=== PATIENT | female | born 1955 | race Caucasian/White ===

== ENCOUNTER 2020-04-08 11:46 | Outpatient (REF) | payer MEDICARE, MEDICAID, SELFPAY | END 2020-04-08 11:47 | disposition home or self-care (01) | LOC: HO.LAB 11:46 | PROVIDERS: Visit Provider Internal Medicine | DX: Z20.828 Contact with and (suspected) exposure to other viral communicable diseases (principal) | CPT/HCPCS: C9803; U0003 ==

== ENCOUNTER → 2020-06-13 14:12 | Outpatient (BNVA) | payer MEDICARE, MEDICAID, SELFPAY | PROVIDERS: PCP Internal Medicine; Visit Provider Internal Medicine Cardiovascular Disease | DX: I44.7 Left bundle-branch block, unspecified (principal); I10 Essential (primary) hypertension | CPT/HCPCS: 93005; 99212 ==

== ENCOUNTER 2020-08-16 08:50 | Outpatient (REF) | payer MEDICARE, MEDICAID, SELFPAY ==
--- NOTE | ~2020-08-16 | XR_ITS ---
EXAMINATION: XR SHOULDER, LEFT CLINICAL INFORMATION: Pain. COMPARISON: None TECHNIQUE: AP external rotation, Grashey, scapular Y, and axillary views of the left shoulder. FINDINGS: There is mild loss of left AC joint space with inferior spurring. The glenohumeral joint space is normal. There is no visible acute fracture, dislocation or bony erosive changes. The soft tissues are normal XR/XR shoulder LT min 2V IMPRESSION: Mild degenerative changes left AC joint. The glenohumeral joint space and rest of the left shoulder appears unremarkable.
== END 2020-08-16 08:51 | disposition home or self-care (01) ==
LOC: HO.XRAY 08:50
PROVIDERS: PCP Internal Medicine; Visit Provider Internal Medicine
DX: M25.512 Pain in left shoulder (principal)
CPT/HCPCS: 73030

== ENCOUNTER → 2021-01-28 11:32 | Outpatient (BNVA) | payer MEDICARE, MEDICAID, SELFPAY | PROVIDERS: PCP Internal Medicine; Referring Provider Internal Medicine; Visit Provider Nurse Practitioner Family | DX: K59.01 Slow transit constipation (principal); Z12.11 Encounter for screening for malignant neoplasm of colon | CPT/HCPCS: Q3014 ==

== ENCOUNTER → 2021-02-17 09:24 | Outpatient (BNVA) | payer MEDICARE, MEDICAID, SELFPAY | PROVIDERS: PCP Internal Medicine; Referring Provider Internal Medicine; Visit Provider Internal Medicine Cardiovascular Disease | DX: Z01.810 Encounter for preprocedural cardiovascular examination (principal); I44.7 Left bundle-branch block, unspecified; I10 Essential (primary) hypertension | CPT/HCPCS: 93005; 99212 ==

== ENCOUNTER 2022-12-14 11:05 | Outpatient (AMB) | payer MEDICARE, MEDICAID, SELFPAY ==
--- NOTE | 2022-12-14 11:08 | A.OFFPC_ITS ---
Vital Signs 12/14/22 11:11 Height 5 ft 4 in Weight 162 lb 4 oz BMI 27.8 BP 140/84 H Blood Pressure Location Rt brachial Position Sitting Pulse 79 Pulse Source Pulse Oximeter Pulse Oximetry (%) 92 Oxygen Delivery Method Room Air Intake Visit Reasons: medication review Intake Note: Patient is here to follow up on medication review. Nanotechnician Required: No Research Physiologist: Not Required per policy Accompanied by: Self / Same As Patient Allergies No Known Allergies Allergy (Verified 12/14/22 11:10) Medication List - Last Reconciled 12/14/22 by Brendan Moise MD amlodipine 5 mg PO DAILY docusate sodium 100 mg PO BEDTIME lorazepam 0.5 mg PO BEDTIME PRN meclizine 25 mg PO BID-QID PRN metoprolol succinate ER 25 mg PO DAILY naproxen (Naprosyn) 500 mg PO BID PRN sertraline 100 mg PO DAILY Tobacco use date assessed: 12/14/22 Fall risk assessment: 2 + Falls in past year Last assessed Fall Risk: 12/14/22 Dental Screening Dental Screen Date: 12/14/22 Did you have a dental visit in the last 12 months?: No Did you have a dental problem in the last 6 months where you did not have access to dental care?: No Was dental information given to patient?: Patient has dentist HPI medication review 2 HPI Details HTN and depression on rx; doing well; cue for labs [facility] Medical History (Updated 11/12/21 @ 10:03 by Brendan Moise MD) Hypertension Left bundle branch block (LBBB) On beta jalil at home Post-menopausal Schwannoma Screening for breast cancer Screening for colon cancer Screening for diabetes mellitus Screening for hyperlipidemia Screening for hypothyroidism Surgical History H/O bilateral salpingo-oophorectomy H/O right knee surgery History of appendectomy History of brain tumor History of bunionectomy History of tonsillectomy Family History Father No problems noted. Mother No problems noted. Social History (Updated 12/14/22 @ 11:16 by JES Lee) Housing: House Alcohol intake: current Alcohol intake frequency: 0-2 drinks per day Alcohol type: wine Patient Tobacco Use Status: Former Tobacco user Quit Date: 30 plus years ago e-Cigarette/Vaping Use: Never Used Second Hand Smoke Exposure: No service: No Current occupational status: retired Cognitive needs: No Hearing needs: Yes (hearing aide) Vision needs: Yes (glasses) Questionnaire PHQ-9 Over the last 2 weeks, how often have you been bothered by any of the following problems? 1. Little interest or pleasure in doing things: nearly every day 2. Feeling down, depressed, or hopeless: more than half the days 3. Trouble falling or staying asleep, or sleeping too much: nearly every day 4. Feeling tired or having little energy: nearly every day 5. Poor appetite or overeating: several days 6. Feeling bad about yourself - or that you are a failure or have let yourself or your family down: several days 7. Trouble concentrating on things, such as reading the newspaper or watching television: more than half the days 8. Moving or speaking so slowly that other people could have noticed. Or the opposite - being so fidgety or restless that you have been moving around a lot more than usual: not at all 9. Thoughts that you would be better off or of hurting yourself in some way: not at all Total score: 15 77460 - PHQ-9 Billing: Yes Source: Developed by Drs. John Casey, Richelle Wiley, Varun Desir and colleagues, with an educational vidal from [employer]. Thrive Questionnaire Date Thrive assessed: 12/14/22 I am a: Patient What is your living situation today?: I have a steady place to live Within the past 12 months, did the food you bought not last and you didn't have the money to get more?: Never true Within the past 12 months, did you worry whether your food would run out before you got money to buy more?: Never true Do you have trouble paying for medicines?: No Do you have trouble getting transportation to medical appointments?: No Do you have trouble paying your heating and electricity bill?: No Do you have trouble taking care of your child, family member or friend?: No Do you have trouble with day-to-day activities such as bathing, preparing meals, shopping, managing finances, etc.?: No Are you currently unemployed and looking for a job?: No Are you interested in more education?: No Currently or been in a relationship where the following occur: no concerns reported AUDIT C Alcohol Use Questionnaire (AUDIT-C) 1. How often do you have a drink containing alcohol?: 2-3 times a week 2. How many drinks containing alcohol do you have on a typical day when you are drinking?: 1 or 2 Total Score: 3 TYSON-7 AMB Questionnaire TYSON-7 Date TYSON - 7 assessed: 12/14/22 Feeling nervous, anxious, or on edge: 3 = Nearly every day Not being able to stop or control worryin = Several days Worrying too much about different things: 1 = Several days Trouble relaxin = Several days Being so restless that it is hard to sit still: 1 = Several days Becoming easily annoyed or irritable: 1 = Several days Feeling afraid as if something awful might happen: 1 = Several days Total TYSON-7 score (0-4 normal; 5-9 mild; 10-14 moderate; 15-21 severe): 9 Source: Developed by Drs. John Casey, Richelle Wiley, Varun Desir and colleagues, with an educational vidal from [employer]. TYSON-7 Assessment Billing TYSON-7 Assessment Tool: TYSON-7 Assessment 12667 Review of Systems Const Denies chills, Denies fatigue, Denies headache(s) and Denies weight loss Eyes Denies change in vision, Denies diplopia and Denies eye pain ENT Denies vertigo, Denies dizziness, Denies headache(s) and Denies nasal discharge Card Denies chest pain, Denies rapid heart rate and Denies dyspnea on exertion Resp Denies chest congestion, Denies cough, Denies pain with cough and Denies dyspnea on exertion GI Denies abdominal pain, Denies hematochezia and Denies change in bowel habits Musc Denies myalgias, Denies arthralgias and Denies joint swelling Skin/Breast Denies lesions and Denies unusual bruising Neuro Denies vertigo, Denies dizziness, Denies headache(s) and Denies focal weakness Endo Denies fatigue Physical exam (Primary Care) Vital Signs: Last Vital Signs Pulse 79 12/14/22 11:11 BP 140/84 H 12/14/22 11:11 Pulse Ox 92 12/14/22 11:11 Oxygen Delivery Method Room Air 12/14/22 11:11 BMI result Body Mass Index 27.8 Tobacco/Smoking Status: Tobacco use Status Tobacco use date assessed 12/14/22 12/14/22 11:19 Patient Tobacco Use Status Former Tobacco user 12/14/22 11:19 e-Cigarette/Vaping Use Never Used 12/14/22 11:19 PHQ-9: PHQ-9 Score PHQ-9: Total score 15 12/14/22 11:19 Thrive Assessment: Date of Thrive Assessment Date Thrive assessed 12/14/22 12/14/22 11:19 Currently or been in a relationship where the following occur: no concerns reported Const General: cooperative, healthy appearing and no acute distress Orientation/consciousness: oriented to person, oriented to place and oriented to time HENMT Head: Yes normal to inspection, Yes normocephalic and Yes atraumatic Mouth: Normal oral and palatal mucosa present and tongue normal Throat: Yes posterior oropharynx normal and Yes uvula midline Eyes General: appearance normal, both eyes and all related structures Neck Neck: Yes normal visual inspection, Yes full ROM and Yes no lymphadenopathy Thyroid: Thyroid normal Carotids: normal carotid upstroke Chest Chest palpation & inspection: normal inspection of the chest Resp Effort & Inspection: normal respiratory effort and able to speak in complete sentences Auscultation: clear to auscultation bilaterally Cardio Jugular venous distension: no JVD Palpation: normal PMI Rate: regular rate Rhythm: regular rhythm Heart sounds: S1 normal heart sound present and S2 normal heart sound present GI Inspection: Yes normal to inspection Palpation (GI): Soft to palpation and No hepatosplenomegaly present Auscultation: normal bowel sounds General: Yes no CVA tenderness Back/Spine/Pelvis Back: no CVA tenderness Skin General skin exam: no rashes or lesions noted Neuro General: oriented to person, oriented to place and oriented to time Extrem General: Yes normal to inspection and Yes full ROM Assessment and Plan Assessment & Plan (1) Depression: Code(s): F32.9 - Major depressive disorder, single episode, unspecified Plan: stable; same rx (2) Hypertension: Code(s): I10 - Essential (primary) hypertension Plan: stable; do labs Orders: Orders Comprehensive Kiefer. Panel Fast Today N28.9 - Disorder of kidney and ureter, unspecified Lipid Panel Today E78.5 - Hyperlipidemia, unspecified Thyroid Stimulating Hormone Today E03.9 - Hypothyroidism, unspecified Complete Blood Count Auto Diff Today D64.9 - Anemia, unspecified MM tomosynthesis screen imp BI Today Z12.31 - Encounter for screening mammogram for malignant neoplasm of breast Medications: Refilled meclizine 25 mg PO BID-QID PRN 180 tabs 8RF dizziness amlodipine 5 mg PO DAILY 90 tabs 8RF metoprolol succinate ER 25 mg PO DAILY 90 tabs 3RF sertraline 100 mg PO DAILY 90 tabs 8RF docusate sodium 100 mg PO BEDTIME 30 caps 3RF K59.00 - Constipation, unspecified naproxen (Naprosyn) 500 mg PO BID PRN 60 tabs 8RF pain lorazepam 0.5 mg PO BEDTIME PRN 90 tabs 5RF anxiety Coding Level of Care Code Est Pt Level 4 (43258) Diagnoses Depression F32.9 Hypertension I10 Additional Codes TYSON-7 Assessment Billing - TYSON-7 Assessment Tool: TYSON-7 Assessment 29522 ([id number])
[2022-12-14 11:11] VITALS: BP 140/84; PULSE 79; O2SAT 92; BMI 27.8
== END 2022-12-14 11:29 | disposition home or self-care (01) ==
PROVIDERS: PCP Internal Medicine; Visit Provider Internal Medicine
DX: F32.9 Major depressive disorder, single episode, unspecified (principal); I10 Essential (primary) hypertension
CPT/HCPCS: 99214

== ENCOUNTER 2023-01-12 08:21 | Outpatient (REF) | payer MEDICARE, MEDICAID, SELFPAY ==
--- NOTE | ~2023-01-12 | MM_ITS ---
EXAMINATION: MM SCREENING DIGITAL BREAST TOMOSYNTHESIS, BILATERAL CLINICAL INFORMATION: Screening. Asymptomatic. COMPARISON: Mammography: There are no prior mammograms for comparison. TECHNIQUE: Digital breast tomosynthesis is performed in both the craniocaudal and mediolateral oblique views along with computer-aided detection (CAD). Synthesized 2D images are generated from the tomosynthesis. FINDINGS: There are scattered areas of fibroglandular density (ACR BI-RADS breast composition Category b). There are no significant masses, abnormal calcifications, or other abnormalities. MM/MM tomosynthesis screening BI IMPRESSION: No mammographic evidence of malignancy. ASSESSMENT: BI-RADS BI-RADS 1 - Negative RECOMMENDATION: Routine annual mammography screening. 1 year F/U This examination should not preclude the clinical evaluation of a suspicious palpable abnormality. This patient's information was entered into a reminder system with a target due date for their next mammogram.
[2023-01-12 09:12] LABS: MANUAL DIFF FLAG NO
[2023-01-12 09:19] LABS: Basophils Absolute Auto 0.1 X10*3/uL (0.0-0.2); Basophils Percent Auto 0.7 % (0-2); Eosinophils Absolute Auto 0.1 X10*3/uL (0.0-0.4); Eosinophils Percent Auto 1.5 % (0-4); Hematocrit 39.7 % (37.0-47.0); Imm Gran Abs Auto 0.02 X10*3/uL (0.00-0.03); Imm Gran Pct Auto 0.3 % (0.0-0.4); Lymphocytes Absolute Auto 1.7 X10*3/uL (1.2-4.9); Lymphocytes Percent Auto 23.3 % (20-40); Mean Corpuscular HGB Conc 32.7 g/dl (31.0-35.0); Mean Corpuscular Hemoglobin 29.6 pg (27.0-33.0); Mean Corpuscular Volume 90.4 fL (80.0-98.0); Mean Platelet Volume 8.6 fL (9.4-12.3); Monocytes Absolute Auto 0.5 X10*3/uL (0.1-1.2); Monocytes Percent Auto 7.2 % (2-11); Neutrophils Absolute Auto 4.8 x10*3/uL (2.0-8.3); Platelet Count 207 X10*3/uL (160-400); Red Blood Count 4.39 X10*6/uL (4.20-5.50); Red Cell Distribution Width 13.7 % (11.0-16.0); White Blood Count 7.1 X10*3/uL (4.8-10.8)
[2023-01-12 10:14] LABS: Alanine Aminotransferase 68 U/L (0-31); Albumin Level 4.2 g/dL (3.5-5.0); Alkaline Phosphatase 86 U/L (39-117); Anion Gap 14 (12-20); Aspartate Amino Transferase 59 U/L (5-31); Bilirubin Total 0.6 mg/dL (0.0-1.0); Blood Urea Nitrogen 10 mg/dL (9-16); Calcium 9.6 mg/dL (8.4-10.2); Carbon Dioxide 27 mmol/L (22-29); Chloride 104 mmol/L (96-108); Cholesterol 308 mg/dL (<200); Estimated Glomerular Filt Rate > 60; Glucose Fasting 118 mg/dL (60-99); HDL Cholesterol 53 mg/dL (>40); LDL Cholesterol Calculated 223 mg/dL (<100); Potassium 3.7 mmol/L (3.3-5.1); Sodium 141 mmol/L (135-145); Total Protein 7.8 g/dL (6.5-8.0); Triglycerides 160 mg/dL (<150)
[2023-01-12 10:29] LABS: Thyroid Stimulating Hormone 4.67 uIU/mL (0.32-4.0)
== END 2023-01-12 08:22 | disposition home or self-care (01) ==
LOC: HO.MAMMO 08:21
PROVIDERS: PCP Internal Medicine; Visit Provider Internal Medicine
DX: Z12.31 Encounter for screening mammogram for malignant neoplasm of breast (principal); E78.5 Hyperlipidemia, unspecified; N28.9 Disorder of kidney and ureter, unspecified; E03.9 Hypothyroidism, unspecified; D64.9 Anemia, unspecified
CPT/HCPCS: 36415; 77063; 77067; 80053; 80061; 84443; 85025

== ENCOUNTER → 2023-01-12 08:30 | Outpatient (BNV) | payer MEDICARE, MEDICAID, SELFPAY | PROVIDERS: PCP Internal Medicine; Visit Provider Radiology Diagnostic Radiology | DX: Z12.31 Encounter for screening mammogram for malignant neoplasm of breast (principal) | CPT/HCPCS: 77063; 77067 ==

== ENCOUNTER 2023-01-28 09:37 | Outpatient (AMB) | payer MEDICARE, MEDICAID, SELFPAY ==
[2023-01-28 09:46] VITALS: BP 132/64; PULSE 68; O2SAT 98; BMI 27.6
--- NOTE | 2023-01-28 09:46 | A.OFFPC_ITS ---
Vital Signs 01/28/23 09:46 Height 5 ft 4 in Weight 161 lb BMI 27.6 BP 132/64 Blood Pressure Location Lt brachial Position Sitting Pulse 68 Pulse Source Pulse Oximeter Pulse Oximetry (%) 98 Oxygen Delivery Method Room Air Intake Visit Reasons: Follow up on lab results Integrated Program Teacher: Not Required per policy Accompanied by: Self / Same As Patient Allergies No Known Allergies Allergy (Verified 01/28/23 09:47) Medication List - Last Reconciled 01/28/23 by Brendan Moise MD amlodipine 5 mg PO DAILY docusate sodium 100 mg PO BEDTIME lorazepam 0.5 mg PO BEDTIME PRN meclizine 25 mg PO BID-QID PRN metoprolol succinate ER 25 mg PO DAILY naproxen (Naprosyn) 500 mg PO BID PRN sertraline 100 mg PO DAILY Tobacco use date assessed: 12/14/22 Fall risk assessment: 1 Fall in past year Last assessed Fall Risk: 01/28/23 Dental Screening Dental Screen Date: 01/28/23 Did you have a dental visit in the last 12 months?: No Did you have a dental problem in the last 6 months where you did not have access to dental care?: No Was dental information given to patient?: Patient has dentist HPI Follow up on lab results HPI Details HTN hyperlip and depression on rx; stable but needs rx for chol PFSH Medical History On beta jalil at home Left bundle branch block (LBBB) Post-menopausal Screening for breast cancer Screening for hyperlipidemia Screening for colon cancer Screening for hypothyroidism Screening for diabetes mellitus Schwannoma Hypertension Surgical History History of brain tumor H/O bilateral salpingo-oophorectomy H/O right knee surgery History of bunionectomy History of tonsillectomy History of appendectomy Family History Father No problems noted. Mother No problems noted. Social History Housing: House Alcohol intake: current Alcohol intake frequency: 0-2 drinks per day Alcohol type: wine Patient Tobacco Use Status: Former Tobacco user Quit Date: 30 plus years ago e-Cigarette/Vaping Use: Never Used Second Hand Smoke Exposure: No service: No Current occupational status: retired Cognitive needs: No Hearing needs: Yes (hearing aide) Vision needs: Yes (glasses) Questionnaire PHQ-9 Over the last 2 weeks, how often have you been bothered by any of the following problems? 1. Little interest or pleasure in doing things: nearly every day 2. Feeling down, depressed, or hopeless: more than half the days 3. Trouble falling or staying asleep, or sleeping too much: nearly every day 4. Feeling tired or having little energy: nearly every day 5. Poor appetite or overeating: several days 6. Feeling bad about yourself - or that you are a failure or have let yourself or your family down: several days 7. Trouble concentrating on things, such as reading the newspaper or watching television: more than half the days 8. Moving or speaking so slowly that other people could have noticed. Or the opposite - being so fidgety or restless that you have been moving around a lot more than usual: not at all 9. Thoughts that you would be better off or of hurting yourself in some way: not at all Total score: 15 Depression Screening Interpretation: Positive 51842 - PHQ-9 Billing: Yes Source: Developed by Drs. John Casey, Richelle Wiley, Varun Desir and colleagues, with an educational vidal from [employer]. Thrive Questionnaire Date Thrive assessed: 12/14/22 AUDIT C Alcohol Use Questionnaire (AUDIT-C) 1. How often do you have a drink containing alcohol?: 2-3 times a week 2. How many drinks containing alcohol do you have on a typical day when you are drinking?: 1 or 2 Total Score: 3 Score Reviewed/Action Taken: Yes TYSON-7 AMB Questionnaire TYSON-7 Date TYSON - 7 assessed: 12/14/22 Source: Developed by Drs. John Casey, Richelle Wiley, Varun Desir and colleagues, with an educational vidal from [employer]. Review of Systems Const Denies chills, Denies headache(s) and Denies weight loss ENT Denies headache(s) Card Denies chest pain, Denies syncope, Denies irregular heart rhythm and Denies dyspnea Resp Denies chest congestion, Denies cough and Denies dyspnea GI Denies abdominal pain, Denies change in stool character, Denies nausea and Denies vomiting Musc Denies deformity and Denies joint swelling Neuro Denies syncope and Denies headache(s) Physical exam (Primary Care) Vital Signs: Last Vital Signs Pulse 68 01/28/23 09:46 BP 132/64 01/28/23 09:46 Pulse Ox 98 01/28/23 09:46 Oxygen Delivery Method Room Air 01/28/23 09:46 BMI result Body Mass Index 27.6 Tobacco/Smoking Status: Tobacco use Status Tobacco use date assessed 12/14/22 01/28/23 09:55 Patient Tobacco Use Status Former Tobacco user 01/28/23 09:55 e-Cigarette/Vaping Use Never Used 01/28/23 09:55 PHQ-9: PHQ-9 Score PHQ-9: Total score 15 01/28/23 09:55 Depression Screening Interpretation: Positive Thrive Assessment: Date of Thrive Assessment Date Thrive assessed 12/14/22 01/28/23 09:55 Const General: cooperative, comfortable, no acute distress and alert Neck Neck: Yes no lymphadenopathy Thyroid: Thyroid normal Resp Effort & Inspection: normal respiratory effort Auscultation: clear to auscultation bilaterally Percussion: percussion normal Cardio Jugular venous distension: no JVD Palpation: normal PMI Rate: regular rate Rhythm: regular rhythm Heart sounds: S1 normal heart sound present and S2 normal heart sound present GI Inspection: Yes normal to inspection Palpation (GI): No hepatosplenomegaly present Skin General skin exam: no rashes or lesions noted Extrem General: Yes no clubbing, cyanosis or edema Assessment and Plan Assessment & Plan (1) Depression: Code(s): F32.9 - Major depressive disorder, single episode, unspecified Qualifiers: Active/Remission status: in partial remission Plan: stable; same rx (2) Hypertension: Code(s): I10 - Essential (primary) hypertension Qualifiers: Hypertension type: primary hypertension Qualified Code(s): I10 - Essential (primary) hypertension Plan: stable; same rx (3) Hyperlipidemia: Code(s): E78.5 - Hyperlipidemia, unspecified Qualifiers: Hyperlipidemia type: mixed hyperlipidemia Qualified Code(s): E78.2 - Mixed hyperlipidemia Plan: new rx Orders: Orders Lipid Panel Today E78.5 - Hyperlipidemia, unspecified Medications: New atorvastatin 20 mg PO DAILY 60 tabs 3RF Coding Level of Care Code Est Pt Level 4 (39614) Diagnoses Depression F32.9 Active/Remission status: in partial remission Primary hypertension I10 Hypertension type: primary hypertension Mixed hyperlipidemia E78.2 Hyperlipidemia type: mixed hyperlipidemia
== END 2023-01-28 11:21 | disposition home or self-care (01) ==
PROVIDERS: PCP Internal Medicine; Visit Provider Internal Medicine
DX: I10 Essential (primary) hypertension (principal); E78.2 Mixed hyperlipidemia; F32.4 Major depressive disorder, single episode, in partial remission
CPT/HCPCS: 99214

== ENCOUNTER 2023-09-16 09:51 | Outpatient (AMB) | payer MEDICARE, SELFPAY ==
[2023-09-16 09:55] VITALS: BP 130/70; PULSE 78; O2SAT 97; BMI 29.2
--- NOTE | 2023-09-16 09:55 | A.OFFPC_ITS ---
Vital Signs 09/16/23 09:55 Height 5 ft 4 in Weight 170 lb BMI 29.2 BP 130/70 Blood Pressure Location Lt brachial Position Sitting Pulse 78 Pulse Source Pulse Oximeter Pulse Oximetry (%) 97 Oxygen Delivery Method Room Air Intake Visit Reasons: PT/follow up Accompanied by: Self / Same As Patient Allergies No Known Allergies Allergy (Verified 09/16/23 10:01) Medication List - Last Reconciled 09/17/23 by Brendan Moise MD amlodipine 5 mg PO DAILY atorvastatin 20 mg PO DAILY docusate sodium 100 mg PO BEDTIME lorazepam 0.5 mg PO BEDTIME PRN meclizine 25 mg PO BID-QID PRN metoprolol succinate ER 25 mg PO DAILY naproxen (Naprosyn) 500 mg PO BID PRN sertraline 100 mg PO DAILY Tobacco use date assessed: 12/14/22 Fall risk assessment: No Falls in past year Last assessed Fall Risk: 09/16/23 Dental Screening Dental Screen Date: 09/16/23 Did you have a dental visit in the last 12 months?: No Did you have a dental problem in the last 6 months where you did not have access to dental care?: Yes Was dental information given to patient?: Patient has dentist HPI PT/follow up HPI Details HTN hyperlipidemia and anxiety on rx; compliant with meds [facility] Medical History On beta jalil at home Left bundle branch block (LBBB) Post-menopausal Screening for breast cancer Screening for hyperlipidemia Screening for colon cancer Screening for hypothyroidism Screening for diabetes mellitus Schwannoma Hypertension Surgical History History of brain tumor H/O bilateral salpingo-oophorectomy H/O right knee surgery History of bunionectomy History of tonsillectomy History of appendectomy Family History Father No problems noted. Mother No problems noted. Social History Housing: House Alcohol intake: current Alcohol intake frequency: 0-2 drinks per day Alcohol type: wine Patient Tobacco Use Status: Former Tobacco user Quit Date: 30 plus years ago e-Cigarette/Vaping Use: Never Used Second Hand Smoke Exposure: No service: No Current occupational status: retired Cognitive needs: No Hearing needs: Yes (hearing aide) Vision needs: Yes (glasses) Questionnaire PHQ-9 Over the last 2 weeks, how often have you been bothered by any of the following problems? 1. Little interest or pleasure in doing things: more than half the days 2. Feeling down, depressed, or hopeless: several days 3. Trouble falling or staying asleep, or sleeping too much: several days 4. Feeling tired or having little energy: several days 5. Poor appetite or overeating: several days 6. Feeling bad about yourself - or that you are a failure or have let yourself or your family down: several days 7. Trouble concentrating on things, such as reading the newspaper or watching television: several days 8. Moving or speaking so slowly that other people could have noticed. Or the opposite - being so fidgety or restless that you have been moving around a lot more than usual: not at all 9. Thoughts that you would be better off or of hurting yourself in some way: not at all Total score: 8 Depression Screening Interpretation: Negative Depression Screening Done: Yes [id number] - PHQ-9 Billing: Yes Source: Developed by Drs. John Casey, Richelle Wiley, Varun Desir and colleagues, with an educational vidal from [employer]. Thrive Questionnaire Date Thrive assessed: 09/16/23 I am a: Patient What is your living situation today?: I have a steady place to live Within the past 12 months, did the food you bought not last and you didn't have the money to get more?: Never true Within the past 12 months, did you worry whether your food would run out before you got money to buy more?: Never true Do you have trouble paying for medicines?: No Do you have trouble getting transportation to medical appointments?: No Do you have trouble paying your heating and electricity bill?: No Do you have trouble taking care of your child, family member or friend?: No Do you have trouble with day-to-day activities such as bathing, preparing meals, shopping, managing finances, etc.?: No Are you currently unemployed and looking for a job?: No Are you interested in more education?: No Please select the resources that you would like help with: None THRIVE Score: 0 AUDIT C Alcohol Use Questionnaire (AUDIT-C) 1. How often do you have a drink containing alcohol?: 2-3 times a week 2. How many drinks containing alcohol do you have on a typical day when you are drinking?: 1 or 2 Total Score: 3 Score Reviewed/Action Taken: Yes TYSON-7 AMB Questionnaire TYSON-7 Date TYSON - 7 assessed: 09/16/23 Feeling nervous, anxious, or on edge: 0 = Not at all Not being able to stop or control worryin = Not at all Worrying too much about different things: 0 = Not at all Trouble relaxin = Not at all Being so restless that it is hard to sit still: 0 = Not at all Becoming easily annoyed or irritable: 0 = Not at all Feeling afraid as if something awful might happen: 0 = Not at all Total TYSON-7 score (0-4 normal; 5-9 mild; 10-14 moderate; 15-21 severe): 0 Source: Developed by Drs. John Casey, Richelle Wiley, Varun Desir and colleagues, with an educational vidal from [employer]. TYSON-7 Assessment Billing TYSON-7 Assessment Tool: TYSON-7 Assessment 51510 Review of Systems Const Denies chills, Denies headache(s) and Denies weight loss ENT Denies headache(s) Card Denies chest pain, Denies syncope, Denies irregular heart rhythm and Denies dyspnea Resp Denies chest congestion, Denies cough and Denies dyspnea GI Denies abdominal pain, Denies change in stool character, Denies nausea and Denies vomiting Musc Denies deformity and Denies joint swelling Neuro Denies syncope and Denies headache(s) Physical exam (Primary Care) Vital Signs: Last Vital Signs Pulse 78 09/16/23 09:55 BP 130/70 09/16/23 09:55 Pulse Ox 97 09/16/23 09:55 Oxygen Delivery Method Room Air 09/16/23 09:55 BMI result Body Mass Index 29.2 Tobacco/Smoking Status: Tobacco use Status Tobacco use date assessed 12/14/22 09/16/23 10:00 Patient Tobacco Use Status Former Tobacco user 09/16/23 10:00 e-Cigarette/Vaping Use Never Used 09/16/23 10:00 PHQ-9: PHQ-9 Score PHQ-9: Total score 8 09/16/23 10:01 Depression Screening Interpretation: Negative Thrive Assessment: Date of Thrive Assessment Date Thrive assessed 09/16/23 09/16/23 10:01 Const General: cooperative, comfortable, no acute distress and alert Neck Neck: Yes no lymphadenopathy Thyroid: Thyroid normal Resp Effort & Inspection: normal respiratory effort Auscultation: clear to auscultation bilaterally Percussion: percussion normal Cardio Jugular venous distension: no JVD Palpation: normal PMI Rate: regular rate Rhythm: regular rhythm Heart sounds: S1 normal heart sound present and S2 normal heart sound present GI Inspection: Yes normal to inspection Palpation (GI): No hepatosplenomegaly present Skin General skin exam: no rashes or lesions noted Extrem General: Yes no clubbing, cyanosis or edema Assessment and Plan Assessment & Plan (1) Hyperlipidemia: Code(s): E78.5 - Hyperlipidemia, unspecified Qualifiers: Hyperlipidemia type: mixed hyperlipidemia Qualified Code(s): E78.2 - Mixed hyperlipidemia Plan: stable; same rx (2) Anxiety: Code(s): F41.9 - Anxiety disorder, unspecified Plan: stable; same rx (3) Hypertension: Code(s): I10 - Essential (primary) hypertension Qualifiers: Hypertension type: primary hypertension Qualified Code(s): I10 - Essential (primary) hypertension Plan: stable; same rx Orders: Orders Complete Blood Count Auto Diff 09/16/23 Z13.0 - Encounter for screening for diseases of the blood and blood-forming organs and certain disorders involving the immune mechanism Comprehensive [place]. Panel Fast 09/16/23 Z13.9 - Encounter for screening, unspecified Lipid Panel 09/16/23 Z13.220 - Encounter for screening for lipoid disorders Thyroid Stimulating Hormone 09/16/23 Z13.29 - Encounter for screening for other suspected endocrine disorder Medications: Refilled amlodipine 5 mg PO DAILY 90 tabs 8RF meclizine 25 mg PO BID-QID PRN 180 tabs 8RF dizziness metoprolol succinate ER 25 mg PO DAILY 90 tabs 3RF sertraline 100 mg PO DAILY 90 tabs 8RF atorvastatin 20 mg PO DAILY 60 tabs 3RF docusate sodium 100 mg PO BEDTIME 30 caps 3RF K59.00 - Constipation, unspecified lorazepam 0.5 mg PO BEDTIME PRN 90 tabs 5RF anxiety naproxen (Naprosyn) 500 mg PO BID PRN 60 tabs 8RF pain Coding Level of Care Code Tele Est Pt Level 4 (75003) Diagnoses Mixed hyperlipidemia E78.2 Hyperlipidemia type: mixed hyperlipidemia Anxiety F41.9 Primary hypertension I10 Hypertension type: primary hypertension Additional Codes TYSON-7 Assessment Billing - TYSON-7 Assessment Tool: TYSON-7 Assessment 73698 ([id number])
== END 2023-09-16 10:20 | disposition home or self-care (01) ==
PROVIDERS: PCP Internal Medicine; Visit Provider Internal Medicine
DX: E78.2 Mixed hyperlipidemia (principal); F41.9 Anxiety disorder, unspecified; I10 Essential (primary) hypertension
CPT/HCPCS: 99214

== ENCOUNTER 2023-10-20 12:49 | Outpatient (REF) | payer MEDICARE, SELFPAY ==
[2023-10-20 13:00] LABS: MANUAL DIFF FLAG NO
[2023-10-20 13:39] LABS: Basophils Percent Auto 0.5 % (0-2); Eosinophils Absolute Auto 0.1 X10*3/uL (0.0-0.4); Eosinophils Percent Auto 1.3 % (0-4); Hematocrit 37.5 % (37.0-47.0); Hemoglobin 11.7 g/dl (12.0-16.0); Imm Gran Abs Auto 0.03 X10*3/uL (0.00-0.03); Imm Gran Pct Auto 0.4 % (0.0-0.4); Lymphocytes Absolute Auto 1.4 X10*3/uL (1.2-4.9); Lymphocytes Percent Auto 18.4 % (20-40); Mean Corpuscular HGB Conc 31.2 g/dl (31.0-35.0); Mean Corpuscular Hemoglobin 24.8 pg (27.0-33.0); Mean Corpuscular Volume 79.6 fL (80.0-98.0); Mean Platelet Volume 8.9 fL (9.4-12.3); Monocytes Absolute Auto 0.5 X10*3/uL (0.1-1.2); Monocytes Percent Auto 5.7 % (2-11); Neutrophils Absolute Auto 5.8 x10*3/uL (2.0-8.3); Neutrophils Percent Auto 73.7 % (45-73); Platelet Count 247 X10*3/uL (160-400); Red Blood Count 4.71 X10*6/uL (4.20-5.50); Red Cell Distribution Width 15.9 % (11.0-16.0); White Blood Count 7.8 X10*3/uL (4.8-10.8)
[2023-10-20 14:56] LABS: Alanine Aminotransferase 51 U/L (0-31); Albumin Level 4.6 g/dL (3.5-5.0); Alkaline Phosphatase 113 U/L (39-117); Anion Gap 15 (12-20); Aspartate Amino Transferase 59 U/L (5-31); Bilirubin Total 1.1 mg/dL (0.0-1.0); Blood Urea Nitrogen 11 mg/dL (9-16); Calcium 9.7 mg/dL (8.4-10.2); Carbon Dioxide 26 mmol/L (22-29); Chloride 103 mmol/L (96-108); Cholesterol 197 mg/dL (<200); Estimated Glomerular Filt Rate > 60; Glucose Fasting 126 mg/dL (60-99); HDL Cholesterol 57 mg/dL (>40); LDL Cholesterol Calculated 116 mg/dL (<100); Potassium 3.3 mmol/L (3.3-5.1); Sodium 141 mmol/L (135-145); Total Protein 8.2 g/dL (6.5-8.0); Triglycerides 123 mg/dL (<150)
[2023-10-20 15:03] LABS: Thyroid Stimulating Hormone 5.23 uIU/mL (0.32-4.0)
== END 2023-10-20 12:50 | disposition home or self-care (01) ==
LOC: HO.LAB 12:49
PROVIDERS: PCP Internal Medicine; Visit Provider Internal Medicine
DX: Z13.220 Encounter for screening for lipoid disorders (principal); Z13.0 Encounter for screening for diseases of the blood and blood-forming organs and certain disorders involving the immune mechanism; Z13.29 Encounter for screening for other suspected endocrine disorder; Z20.2 Contact with and (suspected) exposure to infections with a predominantly sexual mode of transmission
CPT/HCPCS: 36415; 80053; 80061; 84443; 85025

== ENCOUNTER 2023-12-10 08:13 | Outpatient (AMB) | payer MEDICARE, SELFPAY ==
--- NOTE | 2023-12-10 08:37 | A.OFFPC_ITS ---
Vital Signs 12/10/23 08:38 Height 5 ft 4 in Weight 163 lb 4 oz BMI 28.0 BP 120/76 Blood Pressure Location Lt brachial Position Sitting Pulse 77 Pulse Source Pulse Oximeter Pulse Oximetry (%) 96 Oxygen Delivery Method Room Air Intake Visit Reasons: Labs order Intake Note: Patient is here to follow up on lab results. Requesting for Colonoscopy order Bible Teacher Required: No Remittance Clerk: Not Required per policy Accompanied by: Self / Same As Patient Allergies No Known Allergies Allergy (Verified 12/10/23 08:38) Medication List - Last Reconciled 12/10/23 by Brendan Moise MD amlodipine 5 mg PO DAILY atorvastatin 20 mg PO DAILY docusate sodium 100 mg PO BEDTIME lorazepam 0.5 mg PO BEDTIME PRN meclizine 25 mg PO BID-QID PRN metoprolol succinate ER 25 mg PO DAILY naproxen (Naprosyn) 500 mg PO BID PRN sertraline 100 mg PO DAILY Tobacco use date assessed: 12/10/23 Fall risk assessment: 1 Fall in past year Last assessed Fall Risk: 12/10/23 Dental Screening Dental Screen Date: 09/16/23 HPI Labs order HPI Details HTN on Rx; [facility] Medical History On beta jalil at home Left bundle branch block (LBBB) Post-menopausal Screening for breast cancer Screening for hyperlipidemia Screening for colon cancer Screening for hypothyroidism Screening for diabetes mellitus Schwannoma Hypertension Surgical History History of brain tumor H/O bilateral salpingo-oophorectomy H/O right knee surgery History of bunionectomy History of tonsillectomy History of appendectomy Family History Father No problems noted. Mother No problems noted. Social History Housing: House Alcohol intake: current Alcohol intake frequency: 0-2 drinks per day Alcohol type: wine Patient Tobacco Use Status: Former Tobacco user e-Cigarette/Vaping Use: Never Used Second Hand Smoke Exposure: No service: No Current occupational status: retired Cognitive needs: No Hearing needs: Yes (hearing aide) Vision needs: Yes (glasses) Questionnaire Thrive Questionnaire Date Thrive assessed: 09/16/23 TYSON-7 AMB Questionnaire TYSON-7 Date TYSON - 7 assessed: 09/16/23 Source: Developed by Drs. John Casey, Richelle Wiley, Varun Desir and colleagues, with an educational vidal from [employer]. Review of Systems Const Denies chills, Denies headache(s) and Denies weight loss ENT Denies headache(s) Card Denies chest pain, Denies syncope, Denies irregular heart rhythm and Denies dyspnea Resp Denies chest congestion, Denies cough and Denies dyspnea GI Denies abdominal pain, Denies change in stool character, Denies nausea and Denies vomiting Musc Denies deformity and Denies joint swelling Neuro Denies syncope and Denies headache(s) Physical exam (Primary Care) Vital Signs: Last Vital Signs Pulse 77 12/10/23 08:38 BP 120/76 12/10/23 08:38 Pulse Ox 96 12/10/23 08:38 Oxygen Delivery Method Room Air 12/10/23 08:38 BMI result Body Mass Index 28.0 Tobacco/Smoking Status: Tobacco use Status Tobacco use date assessed 12/10/23 12/10/23 08:43 Patient Tobacco Use Status Former Tobacco user 12/10/23 08:37 e-Cigarette/Vaping Use Never Used 12/10/23 08:37 Thrive Assessment: Date of Thrive Assessment Date Thrive assessed 09/16/23 12/10/23 08:37 Const General: cooperative, comfortable, no acute distress and alert Neck Neck: Yes no lymphadenopathy Thyroid: Thyroid normal Resp Effort & Inspection: normal respiratory effort Auscultation: clear to auscultation bilaterally Percussion: percussion normal Cardio Jugular venous distension: no JVD Palpation: normal PMI Rate: regular rate Rhythm: regular rhythm Heart sounds: S1 normal heart sound present and S2 normal heart sound present GI Inspection: Yes normal to inspection Palpation (GI): No hepatosplenomegaly present Skin General skin exam: no rashes or lesions noted Extrem General: Yes no clubbing, cyanosis or edema Assessment and Plan Assessment & Plan (1) Hypertension: Code(s): I10 - Essential (primary) hypertension Qualifiers: Hypertension type: primary hypertension Qualified Code(s): I10 - Essential (primary) hypertension Plan: stable; same rx Orders: Referrals Gastroenterology Referral Z12.11 - Encounter for screening for malignant neoplasm of colon Medications: Refilled docusate sodium 100 mg PO BEDTIME 30 caps 3RF K59.00 - Constipation, unspecified Coding Level of Care Code Est Pt Level 3 (89392) Diagnoses Primary hypertension I10 Hypertension type: primary hypertension
[2023-12-10 08:38] VITALS: BP 120/76; PULSE 77; O2SAT 96; BMI 28.0
== END 2023-12-10 09:03 | disposition home or self-care (01) ==
PROVIDERS: PCP Internal Medicine; Visit Provider Internal Medicine
DX: I10 Essential (primary) hypertension (principal)
CPT/HCPCS: 99213

== ENCOUNTER 2024-11-10 10:39 | Outpatient (AMB) | payer MEDICARE, SELFPAY ==
--- OUTSIDE RECORDS SUMMARY | 2022-01-09 08:03 | XMS_ITS | Continuity of Care Document ---
Author Organization [facility] Address [address] [facility] [address] [place] [address] Phone Care Team Providers Care Cleaning Crew Member Name Role Phone No Information Unavailable Unavailable Allergies, Adverse Reactions, Alerts Substance Reaction Status Criticality No Known Allergies Active No Inform ation Medications Medication Instructions Dosage Effective Dates (start - stop) Status Comments meclizine 25 mg tablet take 1 tablet by oral route 3 times every day as needed 25 MG - Active Procedures Procedure Date Offic/outpt E&m Estab Low-mod 7 Mri Brain; Wo Then W/contrast 7 Nain-base MR contrast NOS,1ml Prohance Ma Offic/outpt E&m Estab Mod-hi 2 17 Mri Brain; Wo Then W/contrast 7 Nain-base MR contrast NOS,1ml Prohance Fe Offic/outpt E&m New Mod-hi 60 7 Advance Directives Directive Yes / No Effective Date File Name No Information Encounters Encounter Description Practice Location Reason(s) For Visit Diagnoses Date Provider Providers Copied on Encounter [facility], [address] [facility] [address], [place], [place], [id number], [place] tel:[phone] No Information No Information Offic/outpt E&m Estab Low-mod [facility], [address] [facility] [address], [place], [place], [id number], [place] tel:[phone] [facility] Schwannoma of cranial nerveOverweig htAbnormal brain MRIHistory of meningioma Laureen Valdovinos. [address] [facility] [address] [address], [place], [place], [id number], [place]. tel:[phone] Referring Provider: Bonifacio Garduno, [address] [address], [place], [address] . tel:[phone] [facility], [address], [id number], [place] tel:[phone] [facility] No Information Laureen Valdovinos. [address] [facility], [address], [id number], [place]. tel:[phone] Referring Provider: Bonifacio Garduno, [address] [address], [place], [address] . tel:[phone] [facility], [address], [id number], tel:[phone] [facility] Schwannoma of cranial nerve Laureen Valdovinos. [address], [id number], [place]. tel:[phone] Offic/outpt E&m Estab Mod-hi 2 [facility], [address], [id number], tel:[phone] [facility] Sensorineural hearing loss (SNHL) of right ear with unrestricted hearing of left earSchwannoma of cranial nerveDysphoni aOverweightVe rtigoVentricu lar enlargement due to brain atrophyAbnorm al brain MRI Laureen Valdovinos. [address] [facility], [address], [id number], [place]. tel:[phone] Referring Provider: Bonifacio Garduno, [address], [address] . tel:[phone] [facility], [address], [id number], tel:[phone] [facility] No Information 7 Laureen Valdovinos. [address], [id number], . tel:[phone] Referring Provider: Bonifacio Garduno, [address], [address] . tel:[phone] Offic/outpt E&m New Mod-hi 60 [facility], [address], [id number], tel:[phone] [facility] OverweightVer tigoSensorine ural hearing loss (SNHL) of right ear with unrestricted hearing of left earAbnormal neurological examSchwannom a of cranial nerveTrauma of soft tissue of neck, initial encounterDysp honia 7 Laureen Valdovinos. [address], [id number], . tel:[phone] Referring Provider: Bonifacio Garduno, [address], [address] . tel:[phone] Family History Family Member Type Diagnosis Age At Onset Mother Problem (finding) Mother Problem (finding) Diabetes mellitus Father Problem (finding) alzheimer's disease Mother Problem (finding) congestive heart failur e Payers Payer name Insurance type Covered constitution party ID [facility]iza [id number] Social History Type Description Quantity Date Captured Comments Sex Female Smoking Status No Information Chief Complaint And Reason For Visit No Information Reason For Referral Reason For Referral No Information Plan Of Treatment Date Type Action Status Goal Lifestyle education regardin g diet completed Goal Lifestyle education regardin g diet completed Referral Ordered: Mri Brain; Wo Then W/contrast Appointment date/timeframe: 07/10/2016 ordered History Of Present Illness Encounter Date Complaint History Of Prese nt Illness No Information Functional Status Date Functional Assessmen t No Information Instructions Date Instruction Additional Infor mation Lifestyle education regarding di et Related to Overweight Lifestyle education regarding di et Related to Overweight Assessments Type Assessment Date No Information Patient Care Teams Name Effective Dates (start - stop) Status Members No Information
--- NOTE | 2024-11-10 10:49 | A.OFFPC_ITS ---
Vital Signs 11/10/24 10:51 Height 5 ft 4 in Weight 168 lb 2 oz BMI 28.9 BP 140/80 H Blood Pressure Location Lt brachial Position Sitting Pulse 88 Pulse Source Pulse Oximeter Temp 97.1 F Temp Source Temporal Artery Scan Pulse Oximetry (%) 97 Oxygen Delivery Method Room Air Intake Visit Reasons: JOSE LUIS from [facility] Intake Note: Patient is here today for JOSE LUIS from Dr Moise. 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: Not Required per policy Accompanied by: Self / Same As Patient Allergies No Known Allergies Allergy (Verified 11/10/24 11:05) Medication List - Last Reconciled 11/10/24 by Elsy Kaminski PA-C amlodipine 5 mg PO DAILY atorvastatin 20 mg PO DAILY docusate sodium 100 mg PO BEDTIME lorazepam 0.5 mg PO BEDTIME PRN meclizine 25 mg PO BID-QID PRN metoprolol succinate ER 25 mg PO DAILY naproxen (Naprosyn) 500 mg PO BID PRN sertraline 100 mg PO DAILY Tobacco use date assessed: 11/10/24 Fall risk assessment: 1 Fall in past year Last assessed Fall Risk: 11/10/24 Dental Screening Dental Screen Date: 11/10/24 Did you have a dental visit in the last 12 months?: Yes Did you have a dental problem in the last 6 months where you did not have access to dental care?: No Was dental information given to patient?: Patient has dentist HPI JOSE LUIS from [facility] HPI Details 69-year-old female with past medical his tory of hyperlipidemia, hypertension, depression, anxiety last seen by Dr. Moise 11/2023 coming in for transfer of care. Presenting with management of hypertension, hyperlipidemia, anxiety and depression, and follow-up on dizziness and balance issues. The patient is on amlodipine and another unspecified antihypertensive medicat ion. Blood pressure was noted to be high at 160/80 mmHg during the visit. The patient recently took her medication, which may not have had time to take effect. The patient is on atorvastatin for cholesterol management. The patient reports that her anxiety and depression are not well managed. She is currently on sertraline 100 mg daily and lorazepam as needed. The decision was made to increase the sertraline dose to 150 mg daily. The patient has a history of two brain tumors, a schwannoma and a meningioma, which have resulted in dizziness and balance issues. She uses meclizine daily to manage dizziness and reports worsening balance, especially when climbing stairs. [facility] Medical History On beta jalil at home Left bundle branch block (LBBB) Post-menopausal Screening for breast cancer Screening for hyperlipidemia Screening for colon cancer Screening for hypothyroidism Screening for diabetes mellitus Schwannoma Hypertension Surgical History History of brain tumor H/O bilateral salpingo-oophorectomy H/O right knee surgery History of bunionectomy History of tonsillectomy History of appendectomy Family History Father No problems noted. Mother No problems noted. Social History Housing: House Alcohol intake: current Alcohol intake frequency: 0-2 drinks per day Alcohol type: wine Patient Tobacco Use Status: Former Tobacco user e-Cigarette/Vaping Use: Never Used Second Hand Smoke Exposure: Yes service: No Current occupational status: retired Cognitive needs: No Hearing needs: Yes (hearing aide) Vision needs: Yes (glasses) Questionnaire PHQ-9 Over the last 2 weeks, how often have you been bothered by any of the following problems? 1. Little interest or pleasure in doing things: more than half the days 2. Feeling down, depressed, or hopeless: more than half the days 3. Trouble falling or staying asleep, or sleeping too much: more than half the days 4. Feeling tired or having little energy: more than half the days 5. Poor appetite or overeating: more than half the days 6. Feeling bad about yourself - or that you are a failure or have let yourself or your family down: not at all 7. Trouble concentrating on things, such as reading the newspaper or watching television: not at all 8. Moving or speaking so slowly that other people could have noticed. Or the opposite - being so fidgety or restless that you have been moving around a lot more than usual: not at all 9. Thoughts that you would be better off or of hurting yourself in some way: not at all Total score: 10 Depression Screening Interpretation: Positive Depression Screening Follow-up: Existing condition, In treatment and Change in Medication Depression Screening Done: Yes Source: Developed by Drs. John Casey, Richelle Wiley, Varun Desir and colleagues, with an educational vidal from [employer]. Thrive Questionnaire Date Thrive assessed: 11/10/24 I am a: Patient What is your living situation today?: I have a place to live, but I am worried about losing it in the future Within the past 12 months, did the food you bought not last and you didn't have the money to get more?: Sometimes True Within the past 12 months, did you worry whether your food would run out before you got money to buy more?: Sometimes True Do you have trouble paying for medicines?: Yes Do you have trouble getting transportation to medical appointments?: No Do you have trouble paying your heating and electricity bill?: Yes Do you have trouble taking care of your child, family member or friend?: No Do you have trouble with day-to-day activities such as bathing, preparing meals, shopping, managing finances, etc.?: I choose not to answer this question Are you currently unemployed and looking for a job?: No Are you interested in more education?: No Please select the resources that you would like help with: Housing/Senior Living and F ood Currently or been in a relationship where the following occur: No concerns reported THRIVE Score: 4 AUDIT C Alcohol Use Questionnaire (AUDIT-C) 1. How often do you have a drink containing alcohol?: 4 or more times a week 2. How many drinks containing alcohol do you have on a typical day when you are drinking?: 3 or 4 3. How often do you have six or more drinks on one occasion?: Less than monthly Total Score: 6 TYSON-7 AMB Questionnaire TYSON-7 Date TYSON - 7 assessed: 11/10/24 Feeling nervous, anxious, or on edge: 2 = More than half the days Not being able to stop or control worryin = More than half the days Worrying too much about different things: 2 = More than half the days Trouble relaxin = More than half the days Being so restless that it is hard to sit still: 2 = More than half the days Becoming easily annoyed or irritable: 1 = Several days Feeling afraid as if something awful might happen: 1 = Several days Total TYSON-7 score (0-4 normal; 5-9 mild; 10-14 moderate; 15-21 severe): 12 Source: Developed by Drs. John Casey, Richelle Wiley, Varun Desir and colleagues, with an educational vidal from [employer]. TYSON-7 Assessment Billing TYSON-7 Assessment Tool: TYSON-7 Assessment 52078 Review of Systems Const Denies body aches, Denies chills, Denies fever(s), Denies headache(s) and Denies poor appetite Eyes Reports no additional complaints ENT Denies dizziness and Denies headache(s) Card Denies chest pain, Denies syncope and Denies dyspnea Resp Denies dyspnea GI Denies abdominal pain, Denies nausea and Denies vomiting Reports no additional complaints Musc Reports no additional complaints and Denies abnormal gait Skin/Breast Reports system reviewed and no additional complaints, except as documented Neuro Details: chronic balance issues Denies abnormal gait, Denies dizziness, Denies syncope and Denies headache(s) Psych Reports no additional complaints Physical exam (Primary Care) Vital Signs: Last Vital Signs Temp 97.1 F 11/10/24 10:51 Pulse 88 11/10/24 10:51 BP 140/80 H 11/10/24 10:51 Pulse Ox 97 11/10/24 10:51 Oxygen Delivery Method Room Air 11/10/24 10:51 BMI result Body Mass Index 28.9 Tobacco/Smoking Status: Tobacco use Status Tobacco use date assessed 11/10/24 11/10/24 10:56 Patient Tobacco Use Status Former Tobacco user 11/10/24 10:56 e-Cigarette/Vaping Use Never Used 11/10/24 10:56 PHQ-9: PHQ-9 Score PHQ-9: Total score 10 11/10/24 11:05 Depression Screening Interpretation: Positive Depression Screening Follow-up: Existing condition, In treatment and Change in Medication Thrive Assessment: Date of Thrive Assessment Date Thrive assessed 11/10/24 11/10/24 10:56 Currently or been in a relationship where the following occur: No concerns reported Const General: cooperative, healthy appearing, comfortable and no acute distress Orientation/consciousness: patient oriented x3 HENMT Head: Yes normocephalic Ears: hearing grossly normal bilaterally General nose exam: Normal external nose present Eyes General: appearance normal, both eyes and all related structures Conjunctivae: conjunctivae normal Neck Neck: Yes full ROM and Yes no lymphadenopathy Resp Effort & Inspection: normal respiratory effort Auscultation: clear to auscultation bilaterally, no crackles, no rales, no rhonchi and no wheezes Cardio Rate: regular rate Rhythm: regular rhythm Skin General skin exam: no rashes or lesions noted Neuro General: patient oriented x3 Cranial nerves: Yes CN's II-XII intact bilaterally Gait exam (Neuro): Normal gait present Motor exam (neuro): 5/5 motor strength present throughout Extrem General: Yes normal to inspection, Yes full ROM and No edema Psych Affect: normal affect Attitude: cooperative Insight: Good insight present (Psych) Judgement: Good judgement present (Psych) Coding Level of Care Code Est Pt Level 4 (19533) Diagnoses Schwannoma D36.10 Anxiety F41.9 Depression F32.9 Active/Remission status: in partial remission Primary hypertension I10 Hypertension type: primary hypertension Mixed hyperlipidemia E78.2 Hyperlipidemia type: mixed hyperlipidemia Additional Codes TYSON-7 Assessment Billing - TYSON-7 Assessment Tool: TYSON-7 Assessment 56127 ([id number]) Assessment & Plan Assessment & Plan (1) Schwannoma: Code(s): D36.10 - Benign neoplasm of peripheral nerves and autonomic nervous system, unspecified Category: Medical Plan: Referral was placed urgently to Neurology as she has not had any follow up so she will evaluation and surgery in 2020. Referral was placed to [facility] as [facility] no longer take her insurance. No neurological deficit noted on exam. (2) Anxiety: Code(s): F41.9 - Anxiety disorder, unspecified Category: Medical Plan: Patient having worsening anxiety and depression time today sertraline to 150 mg and follow up in 2 months. (3) Depression: Code(s): F32.9 - Major depressive disorder, single episode, unspecified Category: Medical Qualifiers: Active/Remission status: in partial remission Plan: See above (4) Hypertension: Code(s): I10 - Essential (primary) hypertension Category: Medical Qualifiers: Hypertension type: primary hypertension Qualified Code(s): I10 - Essential (primary) hypertension Plan: Continue on current blood pressure medication. Avoid salt intake and encourage healthy diet and regular exercise. (5) Hyperlipidemia: Code(s): E78.5 - Hyperlipidemia, unspecified Category: Medical Qualifiers: Hyperlipidemia type: mixed hyperlipidemia Qualified Code(s): E78.2 - Mixed hyperlipidemia Plan: Avoid foods that are high in cholesterol such as red meat, fried foods, eggs and baked goods. Triglyceride goal of less than 150 and LDL goal of less than 100. Continue on atorvastatin 20 Plan The plan includes managing the patient's hypertension by ensuring adherence to prescribed antihypertensive medications and monitoring blood pressure at home. The patient is advised to bring a log of home blood pressure readings to the wv xt visit. For hyperlipidemia, the patient will continue atorvastatin therapy and have cholesterol levels rechecked with upcoming blood work. For anxiety and depression, the sertraline dose will be increased to 150 mg daily, with a follow-up to assess efficacy. The patient is encouraged to report any persistent symptoms. A referral for a colonoscopy has been made, and the patient is advised to schedule the procedure. Additionally, a referral to a neurologist is provided to address dizziness and balance issues, with a follow-up recommended to reassess these symptoms. This note was constructed using voice recognition software. While every effort has been made to ensure accuracy and psych therapist, still areas may have been included sometimes these areas may affect the content or meeting of the given symptoms. Total time spent caring for the patient today was 30 minutes. This includes time spent before the visit reviewing the chart, time spent during the visit, and time spent after the visit and documentation. Patient was informed and verbally consented to the use of an ambient scribe for clinic note documentation during this visit. Orders: Orders TSH reflex Free T4 Today Z00.00 - Encounter for general adult medical examination without abnormal findings, Z13.29 - Encounter for screening for other suspected endocrine disorder Hemoglobin A1c Today Z13.1 - Encounter for screening for diabetes mellitus Vitamin B12 and Folate Today I10 - Essential (primary) hypertension, Z13.21 - Encounter for screening for nutritional disorder Vitamin D 25-OH Total Today I10 - Essential (primary) hypertension, Z00.00 - Encounter for general adult medical examination without abnormal findings Complete Blood Count Auto Diff Today I10 - Essential (primary) hypertension, Z00.00 - Encounter for general adult medical examination without abnormal findings Free T4 (Free Thyroxine) Today Z00.00 - Encounter for general adult medical examination without abnormal findings, Z13.29 - Encounter for screening for other suspected endocrine disorder Comprehensive Met. Panel Today I10 - Essential (primary) hypertension, Z00.00 - Encounter for general adult medical examination without abnormal findings Lipid Panel Today Z13.220 - Encounter for screening for lipoid disorders Referrals Gastroenterology Referral Z12.11 - Encounter for screening for malignant neoplasm of colon Neurosurgery Referral D36.10 - Benign neoplasm of peripheral nerves and autonomic nervous system, unspecified Medications: Changed From sertraline 100 mg PO DAILY 90 tabs 1RF To sertraline 150 mg (1.5 x 100 mg) PO DAILY 135 tabs 1RF 90 days Refilled lorazepam 0.5 mg PO BEDTIME PRN 90 tabs 0RF anxiety amlodipine 5 mg PO DAILY 90 tabs 7RF Z13.220 - Encounter for screening for lipoid disorders atorvastatin 20 mg PO DAILY 90 tabs 2RF Z13.220 - Encounter for screening for lipoid disorders metoprolol succinate ER 25 mg PO DAILY 90 tabs 3RF Z13.220 - Encounter for screening for lipoid disorders Discontinued docusate sodium Discontinued Reason: Patient no longer taking 100 mg PO BEDTIME 30 caps 3RF K59.00 - Constipation, unspecified
[2024-11-10 10:51] VITALS: BP 140/80; PULSE 88; TEMP 36.2; O2SAT 97; BMI 28.9
== END 2024-11-10 11:35 | disposition home or self-care (01) ==
LOC: HO.HMCH 10:40
PROVIDERS: PCP Internal Medicine
DX: D36.10 Benign neoplasm of peripheral nerves and autonomic nervous system, unspecified (principal); F41.9 Anxiety disorder, unspecified; F32.9 Major depressive disorder, single episode, unspecified; I10 Essential (primary) hypertension; E78.2 Mixed hyperlipidemia

== ENCOUNTER → 2024-11-10 10:39 | Outpatient (BNVA) | payer MEDICARE, SELFPAY | PROVIDERS: PCP Internal Medicine | DX: I10 Essential (primary) hypertension (principal); E78.5 Hyperlipidemia, unspecified; F32.A Depression, unspecified; F41.9 Anxiety disorder, unspecified; D36.10 Benign neoplasm of peripheral nerves and autonomic nervous system, unspecified; F32.9 Major depressive disorder, single episode, unspecified; E78.2 Mixed hyperlipidemia | CPT/HCPCS: 96127; 99212 ==

== ENCOUNTER 2025-01-12 09:28 | Outpatient (AMB) | payer MEDICARE, SELFPAY ==
--- OUTSIDE RECORDS SUMMARY | 2022-01-09 08:03 | XMS_ITS | Continuity of Care Document ---
Author Organization [facility] Address [address] [facility] [address] [place] [address] Phone Care Team Providers Care Blower Installer Name Role Phone No Information Unavailable Unavailable [...] on Encounter [facility], [address] [facility] [address], [place], [place], [id number], [place] tel:[phone] No Information No Information Offic/outpt E&m Estab Low-mod [facility], [address] [facility], [place], [place], [id number], [place] tel:[phone] [facility] Schwannoma of cranial nerveOverweig htAbnormal brain MRIHistory of meningioma Laureen Valdovinos. [address] [facility] [address], [place], [place], [id number], [place]. tel:[phone] Referring Provider: Bonifacio Garduno, [address] [address], [place], [address] . tel:[phone] [facility], [address], [id number], [place] tel:[phone] [facility] No Information Luareen Valdovinos. [address] [facility], [address], [id number], [place]. tel:[phone] Referring Provider: Bonifacio Garduno, [address] [address], [place], [address] . tel:[phone] [facility], [address], [id number], tel:[phone] [facility] Schwannoma of cranial nerve Laureen Valdovinos. [address], [id number], [place]. tel:[phone] Offic/outpt E&m Estab Mod-hi 2 [facility], [address], [id number], tel:[phone] [facility] Sensorineural hearing loss (SNHL) of right ear with unrestricted hearing of left earSchwannoma of cranial nerveDysphoni aOverweightVe rtigoVentricu lar enlargement due to brain atrophyAbnorm al brain MRI Laureen Valdovinos. [address] [facility], [address], [id number], [place]. tel:[phone] Referring Provider: Bonifacio Garduno, [address], [address] . tel:[phone] [facility], [address], [id number], tel:[phone] [facility] No Information 7 Laureen Valdovinos. [address], [id number], . tel:[phone] Referring Provider: Bonifacio Garduno, [address], [address] . tel:[phone] Offic/outpt E&m New Mod-hi 60 [facility], [address], [id number], tel:[phone] [facility] OverweightVer tigoSensorine ural hearing loss (SNHL) of right ear with unrestricted hearing of left earAbnormal neurological examSchwannom a of cranial nerveTrauma of soft tissue of neck, initial encounterDysp honia 7 Laureen Valdovinos. [address], [id number], . tel:[phone] Referring Provider: Bonifacio Garduno, [address], [address] . tel:[phone] Family History Family Member Type Diagnosis Age At Onset Mother Problem (finding) Mother Problem (finding) Diabetes mellitus Father Problem (finding) alzheimer's disease Mother Problem (finding) congestive heart failur e Payers Payer name Insurance type Covered libertarian ID Authoriza ticee(s) [facility] [id number] Social History Type Description Quantity Date Captured [...]
--- NOTE | 2025-01-12 09:33 | A.OFFPC_ITS ---
Vital Signs 01/12/25 09:37 Height 5 ft 4 in Weight 169 lb 2 oz BMI 29.0 BP 136/62 Blood Pressure Location Lt brachial Position Sitting Pulse 80 Pulse Source Pulse Oximeter Pulse Oximetry (%) 96 Oxygen Delivery Method Room Air Intake Visit Reasons: 6 week f/u International Recruiter Required: No Accompanied by: Self / Same As Patient Allergies No Known Allergies Allergy (Verified 01/12/25 09:46) Medication List - Last Reconciled 01/12/25 by Elsy Kaminski PA-C amlodipine 5 mg PO DAILY atorvastatin 20 mg PO DAILY lorazepam 0.5 mg PO BEDTIME PRN meclizine 25 mg PO BID-QID PRN metoprolol succinate ER 25 mg PO DAILY naproxen (Naprosyn) 500 mg PO BID PRN sertraline 150 mg (1.5 x 100 mg) PO DAILY 90 days Tobacco use date assessed: 01/12/25 Fall risk assessment: 2 + Falls in past year Last assessed Fall Risk: 01/12/25 Dental Screening Dental Screen Date: 01/12/25 Did you have a dental visit in the last 12 months?: No Did you have a dental problem in the last 6 months where you did not have access to dental care?: No Was dental information given to patient?: No HPI 6 week f/u HPI Details 69-year-old female with past medical his tory of hypertension, schwannoma, depression, anxiety hyperlipidemia last seen 10/2024 coming in for follow up. In review of the notes, patient was seen by [facility] 11/16/2024 MRI ordered for schwannoma and declining physical therapy at this time. Presenting with balance issues and depression management. The patient has been experiencing balance issues and was recommended physical therapy by neurology, which she is now willing to pursue. The patient is currently on sertraline, which was increased to 200 mg due to partial improvement. She reports no side effects from the medication. She is due for a mammogram and bone density screening, which will be scheduled together. The patient opted for the Cologuard test instead of a colonoscopy, which will be arranged. [facility] Medical History On beta jalil at home Left bundle branch block (LBBB) Post-menopausal Screening for breast cancer Screening for hyperlipidemia Screening for colon cancer Screening for hypothyroidism Screening for diabetes mellitus Schwannoma Hypertension Surgical History History of brain tumor H/O bilateral salpingo-oophorectomy H/O right knee surgery History of bunionectomy History of tonsillectomy History of appendectomy Family History Father No problems noted. Mother No problems noted. Social History Housing: House Alcohol intake: current Alcohol intake frequency: 0-2 drinks per day Alcohol type: wine Patient Tobacco Use Status: Former Tobacco user e-Cigarette/Vaping Use: Never Used Second Hand Smoke Exposure: Yes service: No Current occupational status: retired Cognitive needs: No Hearing needs: Yes (hearing aide) Vision needs: Yes (glasses) Questionnaire PHQ-9 Over the last 2 weeks, how often have you been bothered by any of the following problems? 1. Little interest or pleasure in doing things: more than half the days 2. Feeling down, depressed, or hopeless: more than half the days 3. Trouble falling or staying asleep, or sleeping too much: more than half the days 4. Feeling tired or having little energy: more than half the days 5. Poor appetite or overeating: more than half the days 6. Feeling bad about yourself - or that you are a failure or have let yourself or your family down: not at all 7. Trouble concentrating on things, such as reading the newspaper or watching television: not at all 8. Moving or speaking so slowly that other people could have noticed. Or the opposite - being so fidgety or restless that you have been moving around a lot more than usual: not at all 9. Thoughts that you would be better off or of hurting yourself in some way: not at all Total score: 10 Depression Screening Interpretation: Positive Depression Screening Follow-up: Existing condition, In treatment and Change in Medication Depression Screening Done: Yes Source: Developed by Drs. John Casey, Richelle Wiley, Varun Desir and colleagues, with an educational vidal from [employer]. Thrive Questionnaire Date Thrive assessed: 11/10/24 I am a: Patient What is your living situation today?: I have a place to live, but I am worried about losing it in the future Within the past 12 months, did the food you bought not last and you didn't have the money to get more?: Sometimes True Within the past 12 months, did you worry whether your food would run out before you got money to buy more?: Sometimes True Do you have trouble paying for medicines?: Yes Do you have trouble getting transportation to medical appointments?: No Do you have trouble paying your heating and electricity bill?: Yes Do you have trouble taking care of your child, family member or friend?: No Do you have trouble with day-to-day activities such as bathing, preparing meals, shopping, managing finances, etc.?: I choose not to answer this question Are you currently unemployed and looking for a job?: No Are you interested in more education?: No Currently or been in a relationship where the following occur: No concerns reported THRIVE Score: 4 AUDIT C Alcohol Use Questionnaire (AUDIT-C) 1. How often do you have a drink containing alcohol?: 4 or more times a week 2. How many drinks containing alcohol do you have on a typical day when you are drinking?: 3 or 4 3. How often do you have six or more drinks on one occasion?: Less than monthly Total Score: 6 TYSON-7 AMB Questionnaire TYSON-7 Date TYSON - 7 assessed: 11/10/24 Feeling nervous, anxious, or on edge: 2 = More than half the days Not being able to stop or control worryin = More than half the days Worrying too much about different things: 2 = More than half the days Trouble relaxin = More than half the days Being so restless that it is hard to sit still: 2 = More than half the days Becoming easily annoyed or irritable: 1 = Several days Feeling afraid as if something awful might happen: 1 = Several days Total TYSON-7 score (0-4 normal; 5-9 mild; 10-14 moderate; 15-21 severe): 12 Source: Developed by Drs. John Casey, Richelle Wiley, Varun Desir and colleagues, with an educational vidal from [employer] Review of Systems Const Denies body aches, Denies chills, Denies fever(s) and Denies poor appetite Eyes Reports no additional complaints ENT Denies dizziness Card Denies chest pain, Denies edema, Denies lightheadedness and Denies dyspnea Resp Denies dyspnea GI Denies abdominal pain, Reports constipation, Denies diarrhea, Denies nausea and Denies vomiting Reports no additional complaints Musc Denies abnormal gait Skin/Breast Reports system reviewed and no additional complaints, except as documented Neuro Denies abnormal gait and Denies dizziness Psych Reports no additional complaints Physical exam (Primary Care) Vital Signs: Last Vital Signs Pulse 80 01/12/25 09:37 BP 136/62 01/12/25 09:37 Pulse Ox 96 01/12/25 09:37 Oxygen Delivery Method Room Air 01/12/25 09:37 BMI result Body Mass Index 29.0 Tobacco/Smoking Status: Tobacco use Status Tobacco use date assessed 01/12/25 01/12/25 09:42 Patient Tobacco Use Status Former Tobacco user 01/12/25 09:33 e-Cigarette/Vaping Use Never Used 01/12/25 09:33 PHQ-9: PHQ-9 Score PHQ-9: Total score 10 01/12/25 09:42 Depression Screening Interpretation: Positive Depression Screening Follow-up: Existing condition, In treatment and Change in Medication Thrive Assessment: Date of Thrive Assessment Date Thrive assessed 11/10/24 01/12/25 09:33 Currently or been in a relationship where the following occur: No concerns reported Const General: cooperative, healthy appearing, comfortable and no acute distress Orientation/consciousness: patient oriented x3 HENMT Head: Yes normocephalic Ears: hearing grossly normal bilaterally General nose exam: Normal external nose present Eyes General: appearance normal, both eyes and all related structures Conjunctivae: conjunctivae normal Neck Neck: Yes full ROM and Yes no lymphadenopathy Resp Effort & Inspection: normal respiratory effort Auscultation: clear to auscultation bilaterally, no crackles, no rales, no rhonchi and no wheezes Cardio Rate: regular rate Rhythm: regular rhythm Skin General skin exam: no rashes or lesions noted Neuro General: patient oriented x3 Gait exam (Neuro): Normal gait present Extrem General: Yes normal to inspection, Yes full ROM and No edema Psych Affect: normal affect Attitude: cooperative Insight: Good insight present (Psych) Judgement: Good judgement present (Psych) Coding Level of Care Code Est Pt Level 4 (08401) Diagnoses Schwannoma D36.10 Anxiety F41.9 Depression F32.9 Active/Remission status: in partial remission Primary hypertension I10 Hypertension type: primary hypertension Mixed hyperlipidemia E78.2 Hyperlipidemia type: mixed hyperlipidemia Assessment & Plan Assessment & Plan (1) Schwannoma: Code(s): D36.10 - Benign neoplasm of peripheral nerves and autonomic nervous system, unspecified Category: Medical Plan: Recently seen by neurosurgery and plan to MRI for further evaluation. She initially declined PT as advised by her surgeon but is willing to undergo PT at this time. Referral was placed today. (2) Anxiety: Code(s): F41.9 - Anxiety disorder, unspecified Category: Medical Plan: Patient feels her anxiety and depression have been improving with the new dose of Sertraline but would like to increase at this time. Plan to increase to 200mg and follow up in 3 months. Discussed possible side effects of this medication and advised patient against abruptly stopping this medication as she is on the highest dose now. (3) Depression: Code(s): F32.9 - Major depressive disorder, single episode, unspecified Category: Medical Qualifiers: Active/Remission status: in partial remission Plan: See above (4) Hypertension: Code(s): I10 - Essential (primary) hypertension Category: Medical Qualifiers: Hypertension type: primary hypertension Qualified Code(s): I10 - Essential (primary) hypertension Plan: Continue on current blood pressure medication. Avoid salt intake and encourage healthy diet and regular exercise. (5) Hyperlipidemia: Code(s): E78.5 - Hyperlipidemia, unspecified Category: Medical Qualifiers: Hyperlipidemia type: mixed hyperlipidemia Qualified Code(s): E78.2 - Mixed hyperlipidemia Plan: Avoid foods that are high in cholesterol such as red meat, fried foods, eggs and baked goods. Triglyceride goal of less than 150 and LDL goal of less than 100. Continue on atorvastatin 20. Reminded patient about blood work. Plan The patient will proceed with physical therapy for balance issues as recommended by neurology. A referral has been made to the [facility] for vestibular therapy. The sertraline dosage has been increased to 200 mg to better manage depression, with the patient reporting no adverse effects. The prescription has been adjusted to two 100 mg tablets due to insurance coverage issues. Preventative care measures include updating the shingles vaccine to the newer version for enhanced efficacy. The patient is current on pneumonia and tetanus vaccinations. Screening tests have been arranged, including a mammogram and bone density screening, which will be scheduled together. The patient opted for the Cologuard test for colon cancer screening, which will be coordinated. This note was constructed using voice recognition software. While every effort has been made to ensure accuracy and director radio, still areas may have been included sometimes these areas may affect the content or meeting of the given symptoms. Total time spent caring for the patient today was 20 minutes. This includes time spent before the visit reviewing the chart, time spent during the visit, and time spent after the visit and documentation. Patient was informed and verbally consented to the use of an ambient scribe for clinic note documentation during this visit. Orders: Orders PT Evaluation and Treatment Today D36.10 - Benign neoplasm of peripheral nerves and autonomic nervous system, unspecified XR DEXA axial skeleton Today Z78.0 - Asymptomatic menopausal state MM tomosynthesis screening BI Today Z12.31 - Encounter for screening mammogram for malignant neoplasm of breast Referrals Cologuard Test Z12.11 - Encounter for screening for malignant neoplasm of colon, Z12.12 - Encounter for screening for malignant neoplasm of rectum Medications: New sertraline 200 mg (2 x 100 mg) PO DAILY 60 tabs 2RF sertraline 200 mg (2 x 100 mg) PO DAILY 60 tabs 1RF Discontinued sertraline Discontinued Reason: Patient no longer taking 150 mg (1.5 x 100 mg) PO DAILY 90 days 135 tabs 1RF
--- OUTSIDE RECORDS SUMMARY | 2025-01-12 09:33 | XMS_ITS | Clinical Summary ---
Author Organization [facility] Address [address] [place] [address] Phone Care Team Providers Care Gold Buyer Name Role Phone Elsy Kaminski Primary Care Provider [phone] Allergies No known active allergies Medications amLODIPine (NORVASC) 5 mg tablet Take 1 tablet (5 mg total) by mouth. 0 Active atorvastatin (LIPITOR) 20 mg tablet Take 1 tablet (20 mg total) by mouth 1 (one) time each day. 5 Active meclizine (ANTIVERT) 25 mg tablet TAKE ONE TABLET ORALLY 2 TO 4 TIMES A DAY NEEDED FOR DIZZINESS Active LORazepam (Ativan) 0.5 mg tablet Take 0.5 tablets (0.25 mg total) by mouth. 0 Active metoprolol succinate (TOPROL-XL) 25 mg 24 hr tablet Take 1 tablet (25 mg total) by mouth 1 (one) time each day. 5 Active naproxen sodium 500 mg tablet, ER multiphase 24 hr Take 1,000 mg by mouth. 1 Active sertraline (ZOLOFT) 100 mg tablet Take 1 tablet (100 mg total) by mouth 1 (one) time each day. Active Active Problems Problem Noted Date Diagnosed Date Vestibular schwannoma ([facility] V24, [facility] V28) 11/16/2024 Assessment & Plan (11/16/2024 5:05 PM EDT): Patient has progressive worsening right hearing loss, dizziness. Less frequent headaches as she ages. Known acoustic neuroma, most recent MRI brain with and without contrast from 2022 [facility] showed: Enhancing mass right internal auditory canal with component extending to the CP angle measuring 1.5 x 0.5 x 0.7 cm, stable compared to previous exam, does not contact middle cerebellar peduncle or madyson. Right suboccipital craniotomy partially imaged, encephalomalacia of right parietal lobe near surgical site, also not fully assessed on imaging. Dural based enhancing mass left anterior clinoid process 7 x 7 mm on axial postcontrast imaging, possibly slightly larger than previous exam. Radiologist also noted ventricles slightly enlarged, disproportionate enlargement lateral and third ventricles compared to sulci prominence. I will put in an order for follow-up brain MRI with and without contrast imaging to check the vestibular schwannoma, small left anterior clinoid mass (dural based enhancing mass, likely small meningioma), check ventricular size, and rule out any recurrent tumor right parietal region. I will call her with results once completed. I had asked patient if she wanted to go to physical therapy to help with balance and dizziness, she declines at this time, wants to see MRI results first. H/O meningioma of the brain 11/16/2024 Encounters Date Type Department Care Team Description 12/12/[address] [id number] Blanche Cross MD 12/04/2024 7:12 AM EDT - 12/04/2024 11:59 PM EDT Hospital Encounter [facility] MRI [address] [place] [id number] Vestibular schwannoma ([facility] V24, CMS/HCC V28) Discharge Disposition: Home or Self Care 11/17/2024 Telephone Neurosurgery [facility] [address] [phone] April Monahan [place] Radiology Auth ([employer] Auth # [id number], for MR Brain, EFF: 11/16/24 - 05/15/25 has been faxed to [facility]. Will call Pt with appointment. ) 11/16/2024 2:45 PM EDT Consult [address] [phone] Lisa Farley PA Vestibular schwannoma (CMS/HCC V24, CMS/HCC V28) (Primary Dx); H/O meningioma of the brain from Last 3 Months Surgical History Surgery Date Site/Laterality Comments APPENDECTOMY LAPAROTOMY OOPHERECTOMY SALPINGECTOMY BRAIN MENINGIOMA EXCISION Medical History Medical History Date Comments Hypertension Social History Tobacco Use Types Packs/Day Years Used Date Smoking Tobacco: Never Smokeless Tobacco: Never Comments Unknown Sex and Gender Information Value Date Recorded Sex Assigned at Not on file Legal Sex Female 9:00 AM EDT Gender Identity Not on file Sexual Orientation Not on file Obstetrics History Last Filed Vital Signs Vital Sign Reading Time Taken Comments Blood Pressure - - Pulse - - Temperature - - Respiratory Rate - - Oxygen Saturation - - Inhaled Oxygen Concentration - - Weight 72.6 kg (160 lb) 11/16/2024 3:01 PM EDT Height 162.6 cm (5' 4 ) 11/16/2024 3:01 PM EDT Body Mass Index 27.46 11/16/2024 3:01 PM EDT Plan of Treatment Health Maintenance Due Date Last Done Comments Breast Cancer Screening 1955 DTaP,Tdap,and Td Vaccines (1 - Tdap) 1974 Pneumococcal Vaccine: 50+ Ye ars (1 of 1 - PCV) 2005 Zoster Vaccines (1 of 2) 2005 COVID-19 Vaccine (1 - 2023-2 5 season) 2024 Depression Screening 05/24/2024 Colorectal Cancer Screening: Colonoscopy 11/15/2024 Falls Risk Assessment 11/15/2024 Hepatitis C Screening 11/15/2024 Medicare Annual Wellness Visit 11/15/2024 Osteoporosis Screening (Bone Density Screening) 11/15/2024 Social Influencers of Health Screening 11/15/2024 Influenza Vaccine (#1) 2025 RSV Immunization Adult Patie nts (1 - 1-dose 75+ series) 2030 HIB Vaccines Aged Out No longer eligi ble based on patient's age to complete this topic HPV Vaccines Aged Out No longer eligi ble based on patient's age to complete this topic Hepatitis A Vaccines Aged Out No long er eligible based on patient's age to complete this topic Hepatitis B Vaccines Aged Out No long er eligible based on patient's age to complete this topic IPV Vaccines Aged Out No longer eligi ble based on patient's age to complete this topic MMR Vaccines Aged Out No longer eligi ble based on patient's age to complete this topic Meningococcal ACWY Vaccine Aged Out N o longer eligible based on patient's age to complete this topic Meningococcal B Vaccine Aged Out No l onger eligible based on patient's age to complete this topic RSV Immunization Patients Un jeevan 20 months Aged Out No longer eligible b ased on patient's age to complete this topic Varicella Vaccines Aged Out No longer eligible based on patient's age to complete this topic Procedures Procedure Name Priority Date/Time Associated Diagnosis Comments MR BRAIN WO AND W CONTRAST Routine 12/04/2024 9:38 AM EDT Vestibular schwannoma (CMS/HCC V24, CMS/HCC V28) from Last 3 Months Results * MR Brain wo and w Contrast (12/04/2024 9:38 AM EDT) Anatomical Region Laterality Modality Head and Neck Magnetic Resonan ce 12/04/2024 12:5 9 PM EDT Impressions 12/04/2024 1:08 PM EDT 1. Stable enhancing mass in the right IAC, likely a vestibular schwannoma. 2. Encephalomalacia underlying a right parietal craniotomy defect, presumably at the site of a meningioma resection healing provided history. No evidence of a recurrent mass. 3. Stable prominence of the ventricles relative to the sulci. This may be secondary to central predominant atrophy, but should be correlated with the patient's clinical presentation for possible normal pressure hydrocephalus. -------- FINAL REPORT -------- Dictated By: Bubba Perry Dictated Date: 12/04/2024 12:59 ET Assigned Physician: Bubba Perry Reviewed and Electronically Signed By: Bubba Perry Signed Date: 12/04/2024 13:08 ET Workstation ID: [id number] Transcribed By: Self Edit Transcribed Date: 12/04/2024 12:59 ET Narrative 12/04/2024 1:08 PM EDT PROCEDURE: Contrast-enhanced MRI of the brain. HISTORY: Follow-up for right vestibular schwannoma, small left anterior clinoid meningioma, s/p right parietal craniotomy resection meningioma. TECHNIQUE: Multiplanar multisequence MRI of the brain with and without intravenous contrast. IV CONTRAST DOSE: 15 mL Dotarem from a 15 mL vial with 0 mL discarded. COMPARISON: 03/15/2023 and 10/29/2020. FINDINGS: BRAIN: There is a stable area of encephalomalacia in the high posterior right parietal lobe. This underlies a craniotomy defect and is presumably located at the site of a resected meningioma. There is no evidence of a recurrent mass in this area. Stable small focus of encephalomalacia in the anteromedial right frontal lobe. No diffusion abnormality. No or extra-axial fluid collection. No hydrocephalus. The major intracranial flow voids are preserved. The ventricles are prominent relative to the sulci; this is unchanged. Stable patchy T2 signal in the central madyson. A few foci of T2 prolongation in the supratentorial white matter appear slightly more numerous than on 10/29/2020. These findings are likely all of mild chronic microvascular ischemic disease. Dedicated thin section pre and postcontrast images focused on the internal auditory canals demonstrate a stable 1.4 x 0.7 x 0.5 cm enhancing mass in the right IAC. ORBITS: Normal. SINUSES/MASTOIDS: Normal. CALVARIUM: Right parietal craniotomy changes. Mild hyperostosis frontalis interna. OTHER: The visualized skull base soft tissues are normal. Partially visible degenerative changes of the cervical spine. Procedure Note Bubba Perry MD - 12/04/2024 PROCEDURE: Contrast-enhanced MRI of the brain. HISTORY: Follow-up for right vestibular schwannoma, small left anteriorclinoid meningioma, s/p right parietal craniotomy resection meningioma. TECHNIQUE: Multiplanar multisequence MRI of the brain with and withoutintravenous contrast. IV CONTRAST DOSE: 15 mL Dotarem from a 15 mL vial with 0 mL discarded. COMPARISON: 03/15/2023 and 10/29/2020. FINDINGS: BRAIN: There is a stable area of encephalomalacia in the high posteriorright parietal lobe. This underlies a craniotomy defect and is presumablylocated at the site of a resected meningioma. There is no evidence of arecurrent mass in this area. Stable small focus of encephalomalacia inthe anteromedial right frontal lobe. No diffusion abnormality. No orextra-axial fluid collection. No hydrocephalus. The major intracranialflow voids are preserved. The ventricles are prominent relative to the sulci; this is unchanged. Stable patchy T2 signal in the central madyson. A few foci of [id number] in the supratentorial white matter appear slightly morenumerous than on 10/29/2020. These findings are likely all of mildchronic microvascular ischemic disease. Dedicated thin section pre and postcontrast images focused on the internalauditory canals demonstrate a stable 1.4 x 0.7 x 0.5 cm enhancing mass inthe right IAC. ORBITS: Normal. SINUSES/MASTOIDS: Normal. CALVARIUM: Right parietal craniotomy changes. Mild hyperostosis frontalisinterna. OTHER: The visualized skull base soft tissues are normal. Partiallyvisible degenerative changes of the cervical spine. IMPRESSION: 1. Stable enhancing mass in the right IAC, likely a vestibularschwannoma. 2. Encephalomalacia underlying a right parietal craniotomy defect,presumably at the site of a meningioma resection healing provided history.No evidence of a recurrent mass. 3. Stable prominence of the ventricles relative to the sulci. This maybe secondary to central predominant atrophy, but should be correlated withthe patient's clinical presentation for possible normal pressurehydrocephalus. -------- FINAL REPORT -------- Dictated By: Bubba Perry Dictated Date: 12/04/2024 12:59 ET Assigned Physician: Bubba Perry Reviewed and Electronically Signed By: Bubba Perry Signed Date: 12/04/2024 13:08 ET Workstation ID: [id number] Transcribed By: Self Edit Transcribed Date: 12/04/2024 12:59 ET us Lisa CERDA IMG MRI PROCEDURES Final R esult from Last 3 Months Insurance [employer] MEDICARE ADVANTAGE Care Teams Gold Buyer Relationship Specialty Start Date End Date Elsy Kaminski PA [address] [place] [address], [address] [place] [address] PCP - General 11/14/24
[2025-01-12 09:37] VITALS: BP 136/62; PULSE 80; O2SAT 96; BMI 29.0
== END 2025-01-12 10:05 | disposition home or self-care (01) ==
LOC: HO.HMCH 09:28
DX: D36.10 Benign neoplasm of peripheral nerves and autonomic nervous system, unspecified (principal); F41.9 Anxiety disorder, unspecified; F32.9 Major depressive disorder, single episode, unspecified; I10 Essential (primary) hypertension; E78.2 Mixed hyperlipidemia

== ENCOUNTER → 2025-01-12 09:28 | Outpatient (BNVA) | payer MEDICARE, SELFPAY | DX: I10 Essential (primary) hypertension (principal); F32.A Depression, unspecified; D36.10 Benign neoplasm of peripheral nerves and autonomic nervous system, unspecified; F41.9 Anxiety disorder, unspecified; E78.5 Hyperlipidemia, unspecified; F32.9 Major depressive disorder, single episode, unspecified; E78.2 Mixed hyperlipidemia | CPT/HCPCS: 96127; 99212 ==